=== PATIENT | female | born 1980 | race Caucasian/White ===

== ENCOUNTER 2016-10-18 10:37 | Emergency (ER) | payer OTHER ==
[2016-10-18 10:52] VITALS: BP 109/71
--- NOTE | 2016-10-18 11:21 | UC ---
Throat Pain/Nasal Ryan HPI - HPI Summary HPI Summary: 35 female presents with complaints of sore throat, bilateral ear pain and post nasal drip that began 3 days ago. Denies fever/chills, cough, nasal congestion, nausea and sinus pressure. She tried taking one aleve yesterday but states it felt as though it got stuck in her throat because it was so difficult to swallow. Patient had strep in the past often, which is why she had her tonsils taken out. She admits to having strep once after having them removed. 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 Wants to make sure she does not have strep. Has not tried anything else. Denies any other PMHx. - History of Current Complaint Chief Complaint: UCRespiratory Stated Complaint: SORE THROAT Time Seen by Provider: 10/18/16 10:49 Hx Obtained From: Patient Hx Last Menstrual Period: 09/27/16 ?: No Onset/Duration: Sudden Onset, Lasting Days, Still Present, Worse Since Severity: Mild Pain Intensity: 7 Pain Scale Used: 0-10 Numeric Cough: None Associated Signs & Symptoms: Positive: Dysphagia - Allergies/Home Medications Allergies/Adverse Reactions: Allergies Allergy/AdvReac Type Severity Reaction Status Date / Time No Known Allergies Allergy Verified 04/07/15 11:10 Home Medications: Home Medications Norgestimate-Eth Estradiol(NF) [Ortho Tri-Cyclen (NF)] 1 tab PO DAILY 10/18/16 [ History Confirmed 10/18/16] Sertraline HCl [Zoloft] 75 mg PO 10/18/16 [History] PMH/Surg Hx/FS Hx/Imm Hx Endocrine History Of: Denies: Diabetes, Thyroid Disease Cardiovascular History Of: Denies: Cardiac Disorders, Hypertension, Pacemaker/ICD Respiratory History Of: Denies: COPD, Asthma GI/ History Of: Denies: Ulcer - Surgical History Surgical History: Yes Surgery Procedure, Year, and Place: TONSILECTOMY, ELBOW SURGERY WITH PIN- REMOVED - Social History Alcohol Use: Occasionally Substance Use Type: None Smoking Status (MU): Never Smoked Tobacco Review of Systems Constitutional: Negative Skin: Negative Eyes: Negative ENT: Sore Throat, Ear Ache Respiratory: Negative Cardiovascular: Negative Gastrointestinal: Negative Motor: Negative Neurovascular: Negative Musculoskeletal: Negative Neurological: Negative Psychological: Negative All Other Systems Reviewed And Are Negative: Yes Physical Exam Triage Information Reviewed: Yes Appearance: Well-Appearing, No Pain Distress, Well-Nourished Vital Signs: Initial Vital Signs Temp 98.3 F 10/18/16 10:49 Pulse 77 10/18/16 10:49 Resp 18 10/18/16 10:49 BP 109/71 10/18/16 10:49 Pulse Ox 99 10/18/16 10:49 Vital Signs Reviewed: Yes Eyes: Positive: Conjunctiva Clear ENT: Positive: Normal ENT inspection, Hearing grossly normal, Pharyngeal erythema, TMs normal, Other: - no exudate, airway patent, uvual midline. Negative: Tonsillar swelling, Tonsillar exudate - no tonsil visualize- tonsillectomy, Trismus, Muffled/hoarse voice Dental: Positive: Cervical Lymphadenopathy - left side. Negative: Percussion Tenderness @ Neck: Positive: Supple, Nontender Respiratory: Positive: Chest non-tender, Lungs clear, Normal breath sounds, No respiratory distress, No accessory muscle use Cardiovascular: Positive: RRR, No Murmur, Pulses Normal, Brisk Capillary Refill Abdominal Exam: Normal Abdomen Description: Positive: Nontender, No Organomegaly, Soft Bowel Sounds: Positive: Present Musculoskeletal Exam: Normal Musculoskeletal: Positive: Strength Intact, ROM Intact Neurological Exam: Normal Skin Exam: Normal Throat Pain/Nasal Course/Dx - Course Course Of Treatment: patient given liquid ibuprofen while in office. strep culture obtained due to pharngyeal erythema and positive. amoxicillin x10 days. symptomatic treatment- chloraseptic spray, ibuprofen, salt water swishes and fluids/rest. aware of worsening signs and symptoms to watch out for. return if symptoms worsen or persist past 14 days. follow up. - Differential Dx/Diagnosis Differential Diagnosis/HQI/PQRI: Laryngitis, Otitis Media, Pharyngitis, Sinusitis, URI, Other Provider Diagnoses: Streptococcal Pharyngitis Discharge - Discharge Plan Condition: Stable Disposition: HOME Prescriptions: Amoxicillin CAP* [Amoxicillin 500 MG CAP*] 500 mg PO Q12H #20 cap Patient Education Materials: Strep Throat (ED) Referrals: Jovanna Alonso MD [Primary Care Provider] - Additional Instructions: Take prescribed antibiotic as directed until entire dose is finished. Recommend taking probiotic in between doses while taking this medication to replenish normal delta. Use over the counter chloraseptic spray or lozenges to help soothe your sore throat, multiple times daily. Take ibuprofen for pain and inflammation, liquid if easier. Drink plenty of fluids and get lots of rest. Recommend taking vitamin C or daily vitamins to help support immune system and resolve symptoms faster. Swish with salt water and continue good oral hygiene. If symptoms worsen or do not improve please seek medical attention. Follow up with pcp.
[2016-10-18] MEDS ORDERED: Ibuprofen ADULT LIQ* 600 MG/30 ML UDC PO ONE (11:50)
== END 2016-10-18 12:00 | disposition home or self-care (01) ==
LOC: UCEAST 10:37
DX: J02.0 Streptococcal pharyngitis (principal)
CPT/HCPCS: 87651; 99212; A9270-GY; G0463